=== PATIENT | male | born 1970 | race Caucasian/White ===

== ENCOUNTER → 2024-11-15 | Outpatient (CLI) | payer MEDICARE, MEDICAID, SELFPAY ==
--- NOTE | 2024-11-15 16:00 | XR_ITS ---
Examination: Duplex scan of the lower extremity, unilateral left Date and time of exam: November 15, 2024 1555 hrs. Indications: Nonhealing leg swelling this 6 months Technique: Duplex scan of the extremity veins using B-mode/grayscale imaging and Doppler spectral analysis and color flow Attention is directed to internal echogenicity, compression and augmentation involving these veins, color flow assessment, spectral analysis Findings: Major deep venous structures in the extremity demonstrate normal course and caliber. There is no evidence of deep vein thrombosis. Normal color flow and spectral analysis Impression: Negative for DVT..
--- NOTE | 2024-11-15 16:30 | XR_ITS ---
Examination: Pelvic ultrasound, transabdominal, complete Technique: Transabdominal ultrasound of the pelvis performed using grayscale imaging Date and time of exam: November 15, 2024 1602 hrs. Indications: Palpable lump in the groin region noticed beginning one month ago Findings: No bladder mass or bladder calculi Bladder prevoid volume 398 cc, patient unable to void Prostate 3.9 x 1.8 x 3.1 cm 11.81 cc no prostate nodules Impression: No bladder mass or bladder calculi Negative for prostatomegaly, no prostate nodules
== END | disposition home or self-care (01) ==
PROVIDERS: PCP Family Medicine; Referring Provider Student in an Organized Health Care Education/Training Program; Visit Provider Student in an Organized Health Care Education/Training Program
DX: R22.9 Localized swelling, mass and lump, unspecified (principal); R22.42 Localized swelling, mass and lump, left lower limb
CPT/HCPCS: 76856; 93971

== ENCOUNTER → 2025-04-25 | Outpatient (CLI) | payer MEDICARE, MEDICAID, SELFPAY ==
--- NOTE | 2025-04-25 08:45 | XR_ITS ---
Examination: Arterial duplex lower extremity study. Date and time of exam: April 25, 2025 0911 hours INDICATIONS: Bilateral nonhealing foot ulcers beginning 5 months ago. Findings: Duplex sonographic imaging of the lower extremity arteries using B-mode/Tyler scale imaging and Doppler spectral analysis and color flow. Ankle brachial indices have been recorded. Right common femoral artery demonstrates triphasic flow. Right superficial femoral artery demonstrates triphasic flow. Right popliteal artery demonstrates triphasic flow. Right posterior tibial artery demonstrated triphasic flow. Right ankle/brachial index is 1.0. Left common femoral artery demonstrates triphasic flow. Left superficial femoral artery demonstrates triphasic flow. Left popliteal artery demonstrates triphasic flow. Left posterior tibial artery demonstrated triphasic flow. Left ankle/brachial index is 1.0. Impression: Negative for significant obstructive arterial disease As clinically warranted, CT abdominal aorta iliofemoral post contrast might best assess for trifurcation arterial disease
== END | disposition home or self-care (01) ==
LOC: CDIM 08:39
PROVIDERS: PCP Family Medicine; Referring Provider Student in an Organized Health Care Education/Training Program; Visit Provider Student in an Organized Health Care Education/Training Program
DX: I70.235 Atherosclerosis of native arteries of right leg with ulceration of other part of foot (principal)
CPT/HCPCS: 93925